=== PATIENT | male | born 1950 | race Caucasian/White ===

== ENCOUNTER 2017-01-06 03:05 | Emergency (ER) | payer BC ==
[~2017-01-06] VITALS: Ht 172.7 cm; Wt 81.6 kg
--- NOTE | 2017-01-06 03:08 | NUR ---
PATIENT WALKED INTO ER C/O SEVERE CP PAIN RADIATING TO LEFT ARM. PATIENT UPON ARRIVAL C/O SOB. SKIN PALE
--- NOTE | 2017-01-06 03:10 | NUR ---
CALLED [facility] AND INFORM PATIENT HAS ST ELEVATION FAXED EKG AND FACESHEET [phone]
[2017-01-06] MEDS ORDERED: NITROGLYCERIN OINT 1 GM PACKET TP ONE ×2 (03:15→03:24)
[2017-01-06] MEDS ORDERED: CLOPIDOGREL 75 MG TABLET PO ONE (03:15)
[2017-01-06] MEDS ORDERED: HEPARIN SODIUM,PORCINE 5,000 UNITS/ML VIAL IV ONE (03:15)
[2017-01-06] MEDS ORDERED: NITROGLYCERIN 0.4 MG/TAB BOTTLE SL ONE ×2 (03:15→03:24)
[2017-01-06] MEDS ORDERED: ASPIRIN 81 MG TAB.CHEW PO ONE (03:15)
--- NOTE | 2017-01-06 03:16 | NUR ---
AFTER 1ST DOSE OF NITRO NO CHANGE IN PAIN. PAIN 10/10 PRESSURE PAIN RADIATING TO LEFT ARM
[2017-01-06] MEDS ORDERED: ASPIRIN 81 MG TAB.CHEW ONE (03:24)
--- NOTE | 2017-01-06 03:24 | NUR ---
PAIN 10/10 AFTER 3RD NITRO
[2017-01-06 03:27] LABS: BASOPHILS # (AUTO) 0.1 K/uL (0.0-8.0); BASOPHILS % (AUTO) 0.6 % (0.0-2.0); EOSINOPHILS # (AUTO) 0.6 K/uL (0.0-0.7); HEMATOCRIT 42.6 % (40-50); HEMOGLOBIN 14.6 G/DL (14.0-18.0); LYMPHOCYTES # (AUTO) 5.7 K/UL (0.8-4.8); LYMPHOCYTES % (AUTO) 48.1 % (20.5-51.5); MEAN CORPUSCULAR HEMOGLOBIN 28.2 UUG (27.0-31.0); MEAN CORPUSCULAR HGB CONC 34 g/dL (32.0-37.0); MEAN CORPUSCULAR VOLUME 82.3 FL (82.0-92.0); MONOCYTES # (AUTO) 0.9 K/UL (0.1-1.30); MONOCYTES % (AUTO) 7.3 % (0.0-11.0); NEUTROPHILS # (AUTO) 4.7 K/UL (1.8-8.9); PLATELET COUNT (AUTO) 293 K/UL (150-450); RED BLOOD CELL COUNT(AUTO) 5.18 MIL/UL (4.7-6.1); WHITE BLOOD COUNT (AUTO) 11.9 K/UL (4.0-11.2)
--- NOTE | 2017-01-06 03:30 | NUR ---
DR SHAH WILL BE ACCEPTING [facility]BR[facility] WORKER ACCCEPTING PATIENT
[2017-01-06 03:31] VITALS: BP 117/77
[2017-01-06] MEDS ORDERED: HEPARIN SODIUM,PORCINE 5,000 UNITS/ML VIAL ONE (03:31)
[2017-01-06] MEDS ORDERED: HYDROCODON-ACETAMINOPHEN 5-325 (03:31)
[2017-01-06] MEDS ORDERED: ZOLPIDEM 10 MG (03:31)
[2017-01-06] MEDS ORDERED: METOPROLOL TARTRATE 50 MG (03:31)
[2017-01-06] MEDS ORDERED: CYCLOBENZAPRINE 10 MG (03:31)
[2017-01-06] MEDS ORDERED: AMLODIPINE BESYLATE 5 MG TAB (03:31)
[2017-01-06] MEDS ORDERED: HYDROCODONE/ACETAMINOPHEN 5-32 (03:31)
[2017-01-06] MEDS ORDERED: NITROGLYCERIN 0.4 MG (03:31)
[2017-01-06 03:33] LABS: CREATININE 1.1 mg/dL (0.6-1.3); POTASSIUM 3.4 mmol/L (3.5-5.1)
[2017-01-06] MEDS ORDERED: CLOPIDOGREL 75 MG TABLET ONE (03:33)
--- NOTE | 2017-01-06 03:37 | NUR ---
PHARMACY NOTE; 525MG OF PLAVIX PO ADMINISTERED. ONLY 525MG AVAIL IN THR PYX[facility], PT WAS TRANSFERED OUT TO [facility] PER EMS DUE TO STEMI,PRIOR TO HAVING THE 75MG PLAVIX TAB AVAIL. MD ALANIS AWARE.
--- NOTE | 2017-01-06 03:38 | NUR ---
TRANSFERED TO [facility] VIA 911
[2017-01-06] MEDS ORDERED: ONDANSETRON 4 MG/2 ML VIAL IV ONE (03:45)
[2017-01-06] MEDS ORDERED: ONDANSETRON 4 MG/2 ML VIAL ONE (03:47)
[2017-01-06 03:50] LABS: BILIRUBIN,DIRECT 0.1 mg/dL (0.0-0.2); BILIRUBIN,TOTAL 0.3 mg/dL (0.2-1.0); TOTAL PROTEIN, SERUM 7.5 g/dL (6.4-8.2)
== END 2017-01-06 03:38 | disposition short-term general hospital (02) ==
LOC: ER 03:07
DX: I21.3 ST elevation (STEMI) myocardial infarction of unspecified site (principal); I25.2 Old myocardial infarction; Z95.5 Presence of coronary angioplasty implant and graft
CPT/HCPCS: 36415; 70030-TC; 71010; 85025; 85730; 93005; A4663; J1644; J2405

== ENCOUNTER 2020-10-16 12:36 | Outpatient (CLI) | payer MEDICARE, BC ==
[~2020-10-16 12:36] MED LIST: AMLODIPINE BESYLATE 5 MG TAB; CYCLOBENZAPRINE 10 MG; HYDROCODON-ACETAMINOPHEN 5-325; HYDROCODONE/ACETAMINOPHEN 5-32; METOPROLOL TARTRATE 50 MG; NITROGLYCERIN 0.4 MG; ZOLPIDEM 10 MG
== END 2020-10-16 23:59 | disposition home or self-care (01) ==
LOC: RAD 12:36
PROVIDERS: ATTEND Family Medicine
DX: M18.12 Unilateral primary osteoarthritis of first carpometacarpal joint, left hand (principal); M25.742 Osteophyte, left hand; I25.10 Atherosclerotic heart disease of native coronary artery without angina pectoris; I70.0 Atherosclerosis of aorta; Z95.818 Presence of other cardiac implants and grafts
CPT/HCPCS: 71046; 73130

== ENCOUNTER → 2022-07-11 | Outpatient (CLI) | payer MEDICARE ==
[2022-07-11 08:19] LABS: HEMATOCRIT 42.4 % (36.7-47.1); MEAN CORPUSCULAR HEMOGLOBIN 27.6 uug (23.8-33.4); MEAN CORPUSCULAR VOLUME 84.6 fL (73.0-96.2); PLATELET COUNT (AUTO) 267 K/uL (152-348)
[2022-07-11 08:23] LABS: *BILIRUBIN,URIN NEGATIVE (NEGATIVE); *CLARITY,URINE CLEAR (CLEAR); *COLOR,URINE YELLOW (YELLOW); *KETONES,URINE NEGATIVE (NEGATIVE); *UROBILINOGEN,URINE 0.2 E.U./dl (NORMAL); LEUKOCYTE ESTERASE ,URINE NEGATIVE (NEGATIVE); NITRITE, URINE NEGATIVE (NEGATIVE); PH,URINE 5.5 (5.0-8.0); UGLUCOSE NEGATIVE (NEGATIVE)
[2022-07-11 08:36] LABS: *BLOOD, URINE TRACE (NEGATIVE)
[2022-07-11 08:58] LABS: MUCUS,URINE MANY /LPF (0-FEW)
[2022-07-11 08:59] LABS: BACTERIA,URINE NONE SEEN /HPF (NONE SEEN); RBC,URINE 0-3 /HPF (0-3); SQUAMOUS EPITHELIAL CELL,UR NONE SEEN /HPF (NONE SEEN); WBC,URINE 0-3 /HPF (0-3)
[2022-07-11 09:16] LABS: BILIRUBIN,TOTAL 0.5 mg/dL (0.2-1.0); CREATININE 1.1 mg/dL (0.6-1.3); POTASSIUM 3.7 mmol/L (3.5-5.1); TOTAL PROTEIN, SERUM 7.1 g/dL (6.4-8.2)
== END | disposition home or self-care (01) ==
LOC: LAB 07:36
PROVIDERS: ATTEND Family Medicine
DX: C61 Malignant neoplasm of prostate (principal); E11.9 Type 2 diabetes mellitus without complications; E78.5 Hyperlipidemia, unspecified; I10 Essential (primary) hypertension
CPT/HCPCS: 85025; 85651